=== PATIENT | female | born 1975 | race African-American/Black ===

== ENCOUNTER 2019-01-23 10:00 | Day surgery (SDC) | payer MEDICARE, OTHER ==
[~2019-01-23 10:00] MED LIST: BUPIV. HCL 0.25% (2.5MG/ML)/EPI. (1:200,000) PF 10 ML VIAL IM ONE; CLINDAMYCIN PHOSPHATE 900 MG/6 ML VIAL ONE; DEXAMETHASONE SODIUM PHOSPHATE 10 MG/ML VIAL ONE; ENOXAPARIN SODIUM 40 MG/0.4 ML DISP.SYRIN SQ ONE; FAMOTIDINE 20 MG/2 ML VIAL IV ONE; GLYCOPYRROLATE 0.2 MG/1 ML 1 ML ONE; LACTATED RINGERS 1,000 ML IV.SOLN IV ONE; LIDOCAINE HCL 1% MDV 200MG/20ML VIAL ONE; LIDOCAINE HCL 2% PF 100MG/5ML VIAL IJ ONE; MIDAZOLAM HCL 2 MG/2 ML VIAL ONE; ONDANSETRON HCL/PF 4 MG/ 2ML VIAL ONE; PHENYLEPHRINE HCL 10 MG/1 ML ONE; PROPOFOL 200 MG/20 ML VIAL IV ONE; ROCURONIUM BROMIDE 10 MG/ML 5ML VIAL ONE; SCOPOLAMINE HYDROBROMIDE 1.5MG/72HR PATCH TD ONE; SEVOFLURANE 250 ML LIQUID IH ONE; SODIUM CHLORIDE IRRIG SOLUTION 3,000 ML IRRIG.SOLN IR ONE; SUGAMMADEX SODIUM 200 MG/2 ML VIAL IV ONE
[2019-01-23] MEDS ORDERED: HYDROcodone /APAP 5/325 1 EACH TABLET ONE (14:20)
--- NOTE | 2019-01-28 13:04 | Operative Note ---
PROCEDURE DATE: 01/23/2019 PREOPERATIVE DIAGNOSIS: 1. Morbid obesity. 2. Hypertension. 3. Obstructive sleep apnea. POSTOPERATIVE DIAGNOSIS: 1. Morbid obesity. 2. Hypertension. 3. Obstructive sleep apnea. 4. Upper abdominal adhesions. PROCEDURES PERFORMED: Laparoscopy. SURGEON: Soto Velázquez M.D. INDICATIONS FOR PROCEDURE: Leona Restrepo is a 44-year-old female who presented with features of morbid obesity and the above-listed comorbidities. She was noted to have a weight of 351 lbs and a BMI of 60.3. The patient was advised laparoscopic vertical sleeve gastrectomy and possible hiatal hernia repair. The patient showed understanding and agreed to proceed. DESCRIPTION OF PROCEDURE: After explaining to the patient in detail and informed consent was obtained, the patient was identified in the preoperative holding area. The patient was transferred to the operating room and was placed in supine position. Sequential compressive devices were placed for DVT prophylaxis. Preoperative antibiotics were given. After induction of anesthesia, the abdomen was prepped and draped in a sterile fashion. Through a left upper quadrant 1-cm incision, and using Optiview technique, I attempted to gain access to the peritoneal cavity, however, on insufflation I was unable to insufflate the abdomen. I got into some adhesions in the left upper quadrant region. In spite of multiple attempts, I was not able to make any progress. I placed another 5-mm trocar in the right upper quadrant. I had a similar situation where I was not able to get a clear view of the peritoneal cavity because of adhesions. I placed a third port in the left midabdomen and also right upper quadrant. I was finally able to visualize the lower abdomen through one of the port sites and then I placed a place in the right lower quadrant region to visualize what is going on and I found that the patient was noted to have extensive adhesions in the upper abdomen involving the colon and omentum that would have made surgery unsafe to proceed at this point. Therefore, to assure I did not cause any damage to the colon or any surrounding structures, the ports were removed. Good hemostasis was then assured. The abdomen was then deflated and the incisions were closed with 4-0 Monocryl for the incisions, and Dermabond was applied. The patient was stable at the end of the procedure. The patient was awakened from anesthesia and was transferred to the recovery room in stable condition. ESTIMATED BLOOD LOSS: Minimal. CONDITION OF THE PATIENT: Stable. FLUIDS GIVEN: Per Anesthesia note. SPECIMEN(S) SENT: None. COMPLICATIONS: None. ANESTHESIA: General. Soto Velázquez M.D. TONJA/triston (Please copy [facility] provider when applicable) Job #[id number]
== END 2019-01-23 14:35 | disposition home or self-care (01) ==
LOC: OPSURG 10:00
PROVIDERS: ATTEND Surgery
DX: E66.01 Morbid (severe) obesity due to excess calories (principal); K66.0 Peritoneal adhesions (postprocedural) (postinfection); G47.33 Obstructive sleep apnea (adult) (pediatric); I10 Essential (primary) hypertension; Z68.44 Body mass index [BMI] 60.0-69.9, adult
CPT/HCPCS: 49320; A9270; J1650; J2001; J2250; J2370; J2405; J2704; J3490; J7120